=== PATIENT | female | born 1995 | race Caucasian/White ===

== ENCOUNTER 2022-06-14 18:30 | Emergency (ER) | payer OTHER, SELFPAY ==
--- NOTE | ~2022-06-14 | XR_ITS ---
EXAMINATION: XR chest 1V Exam Date/Time: 06/14/2022 19:40 CDT HISTORY: CHEST TIGHTNESS PATIENTS AXIETY HAS BEEN HEIGHTENED TODAY Comparison: None available. RESULT: Lines, tubes, and devices: None. Lungs and pleura: Clear. Cardiomediastinal silhouette: Normal. Other: No acute osseous or upper abdominal finding. IMPRESSION: No acute cardiopulmonary process. Reviewed, dictated and finalized at location K.
--- NOTE | 2022-06-14 18:31 | ECG_ITS ---
Measurements Intervals Gleason Rate: 78 P: 24 OK: 160 QRS: 56 QRSD: 91 T: 40 QT: 357 QTc: 408 Interpretive Statements SINUS RHYTHM NORMAL ECG NO PREVIOUS ECG AVAILABLE FOR COMPARISON Electronically Signed On 06-15-2022 15:04:24 CDT by Andres Pineda M.D.
[2022-06-14 18:36] VITALS: BP 142/99; PULSE 100; RESP 19; TEMP 36.7; O2SAT 99
[2022-06-14 19:08] LABS: Basophils Absolute Auto 0.1 K/mm3 (0.0-0.1); Basophils Percent Auto 0.7 % (0.2-1.2); Eosinophils Percent Auto 0.4 % (0-4.4); Hematocrit 43.4 % (37.0-47.0); Hemoglobin 14.6 g/dL (12.0-15.0); Immature Granulocyte Absolute 0.01 K/mm3 (0.00-0.031); Immature Granulocyte Percent A 0.1 % (0-0.5); Lymphocytes Absolute Auto 2.03 K/mm3 (0.9-3.2); Lymphocytes Percent Auto 29.1 % (18.3-44.2); Mean Corpuscular HGB Conc 33.6 g/dl (32-36); Mean Corpuscular Volume 86.1 fl (80-100); Mean Platelet Volume 9.9 fl (7.4-10.4); Monocytes Absolute Auto 0.6 K/mm3 (0.1-0.6); Monocytes Percent Auto 7.9 % (2.6-8.5); Neutrophils Absolute Auto 4.3 K/mm3 (1.3-6.7); Neutrophils Percent Auto 61.8 % (45.5-73.1); Platelet Count Result 314 k/mm3 (150-375); Red Blood Count 5.04 M/mm3 (4.2-5.4); Red Cell Distribution Width 12.5 % (11.5-14.5)
[2022-06-14 19:18] LABS: Alanine Aminotransferase 14 U/L (6-35); Albumin Level 4.9 g/dL (3.5-5.1); Alkaline Phosphatase 73 U/L (38-126); Anion Gap 12 mmol/L (8-16); Aspartate Amino Transferase 21 U/L (14-36); Bilirubin,Total 0.9 mg/dL (0.2-1.3); Blood Urea Nitrogen 3 mg/dL (7-17); Calcium 9.9 mg/dL (8.4-10.2); Carbon Dioxide 23 mmol/L (22-30); Chloride 101 mmol/L (98-107); Estimated CRCL calculation 81 ml/min; Estimated Glomerular Filt Rate > 60; Glucose 103 mg/dL (65-110); Lipase 81 U/L (23-300); Potassium 3.6 mmol/L (3.4-5.0); Sodium 136 mmol/L (137-145)
[2022-06-14 19:26] LABS: Partial Thromboplastin Time 31.2 SECONDS (22.3-36.8)
[2022-06-14 19:30] LABS: Troponin I < 0.012 ng/mL (0.000-0.034)
--- NOTE | 2022-06-14 19:42 | PC.NURSE ---
No answer x 2, did not notify [employer] PRODUCT ANALYST of leaving ER. Pt triaged w/ labs sent and EKG done.
[2022-06-14 20:30] LABS: INR 1.1
--- NOTE | 2022-06-14 20:51 | ED.GENADULT ---
HPI - General Adult General Chief complaint: Chest Pain Stated complaint: chest pains, difficulty swallowing Time Seen by Provider: 06/14/22 20:40 History of Present Illness HPI narrative: A 7-year-old female history of anxiety presenting to ED with a chief complaint of chest pain between the hours of 69 for 1 year. Patient notes that every day after she gets home from work she starts to have feelings of overwhelming anxiety that are associated with chest heaviness, sweaty palms, perioral tingling and difficulty swallowing. Patient does not have difficulty swallowing any other point during the day. A feeling of throat closure or sensation of food getting stuck. A psychiatrist for anxiety and has appointment tomorrow. Patient's main concern today is 1 mixture she was having heart attack. Related Data Allergies Allergy/AdvReac Type Severity Reaction Status Date / Time Penicillins Allergy Intermediate Swelling Verified 11/07/11 14:22 diphenhydramine Allergy Mild Itching Verified 02/14/16 15:27 Review of Systems Review of Systems: CONSTITUTIONAL: Denies night sweats. EYES: No eye pain ENT: Denies rhinorrhea CARDIOVASCULAR: Denies palpitations RESPIRATORY: Denies hemoptysis GASTROINTESTINAL: Denies hematemesis GENITOURINARY: Denies hematuria. SKIN: Denies rash MUSCULOSKELETAL: Denies myalgia. NEUROLOGIC: Denies weakness. PSYCHIATRIC: Denies delusions Exam Narrative: APPEARANCE: No apparent distress. Head atraumatic. EYES: PERRLA/EOMI, NOSE: Normal no drainage NECK: Supple, Trachea midline RESPIRATORY: CTAB, No increased work of breathing. CARDIOVASCULAR: S1S2 appreciated ABDOMINAL: Soft, nontender, nondistended, MUSCULOSKELETAl: No obvious deformities NEURO: Alert. Moving 4/4 extremities SKIN:: Warm, dry. Normal color PSYCHIATRIC: Normal affect Course Vital Signs Vital signs: Vital Signs Temperature 98.0 F 06/14/22 18:36 Pulse Rate 100 06/14/22 18:36 Respiratory Rate 19 06/14/22 18:36 Blood Pressure 142/99 H 06/14/22 18:36 Pulse Oximetry 99 06/14/22 18:36 Oxygen Delivery Room Air 06/14/22 18:36 Temperature 98.0 F 06/14/22 18:36 Pulse Rate 100 06/14/22 18:36 Respiratory Rate 19 06/14/22 18:36 Blood Pressure 142/99 H 06/14/22 18:36 Pulse Oximetry 99 06/14/22 18:36 Oxygen Delivery Room Air 06/14/22 18:36 Medical Decision Making MDM Narrative Medical decision making narrative: 27-year-old female presenting to ED with episodic chest pain x1 year. Her history and physical are consistent with anxiety. Her laboratory workup here was unremarkable. Her EKG is reassuring. Patient will be discharged home to follow-up with her psychiatrist and PCP in the next week. Vital Signs Vital Signs: Vital Signs Temperature 98.0 F 06/14/22 18:36 Pulse Rate 100 06/14/22 18:36 Respiratory Rate 19 06/14/22 18:36 Blood Pressure 142/99 H 06/14/22 18:36 Pulse Oximetry 99 06/14/22 18:36 Oxygen Delivery Room Air 06/14/22 18:36 Temperature 98.0 F 06/14/22 18:36 Pulse Rate 100 06/14/22 18:36 Respiratory Rate 19 06/14/22 18:36 Blood Pressure 142/99 H 06/14/22 18:36 Pulse Oximetry 99 06/14/22 18:36 Oxygen Delivery Room Air 06/14/22 18:36 Lab Data Result diagrams: 06/14/22 18:57 06/14/22 18:57 Labs: Lab Results 06/14/22 06/14/22 06/14/22 Range/Units 18:57 18:57 18:57 WBC 7.0 (4.5-10.0) K/mm3 RBC 5.04 (4.2-5.4) M/mm3 Hgb 14.6 (12.0-15.0) g/dL Hct 43.4 (37.0-47.0) % MCV 86.1 (80-100) fl MCH 29.0 (26-34) pg MCHC 33.6 (32-36) g/dl RDW 12.5 (11.5-14.5) % Plt Count 314 (150-375) k/mm3 MPV 9.9 (7.4-10.4) fl Immature Gran % (Auto) 0.1 (0-0.5) % Neut % (Auto) 61.8 (45.5-73.1) % Lymph % (Auto) 29.1 (18.3-44.2) % Burke % (Auto) 7.9 (2.6-8.5) % Eos % (Auto) 0.4 (0-4.4) % Baso % (Auto) 0.7 (0.2-1.2) % Lymph # (Auto) 2.03 (0.
[2022-06-14 21:17] VITALS: BP 117/83; PULSE 78; RESP 16; O2SAT 99
== END 2022-06-14 21:18 | disposition home or self-care (01) ==
PROVIDERS: Emergency Medicine; Emergency Provider Emergency Medicine; PCP Nurse Practitioner Adult Health
DX: F41.9 Anxiety disorder, unspecified (principal)
CPT/HCPCS: 36415; 71045; 80053; 83690; 84484; 85025; 85610; 85730; 93005; 99284